=== PATIENT | female | born 1990 | race Caucasian/White ===

== ENCOUNTER 2018-11-03 17:32 | Emergency (ER) | payer SELFPAY ==
[~2018-11-03] VITALS: Ht 160 cm; Wt 95.5 kg
[2018-11-03 17:40] VITALS: BP 127/81
== END 2018-11-03 18:07 | disposition home or self-care (01) ==
LOC: ER 17:33
DX: M79.642 Pain in left hand (principal)
CPT/HCPCS: 29130; 73120; 99283

== ENCOUNTER 2019-01-20 10:03 | Emergency (ER) | payer OTHER ==
[~2019-01-20] VITALS: Ht 160 cm; Wt 95.5 kg
--- NOTE | 2019-01-20 10:10 | NUR ---
Relief with Zofran ODT given by EMS per pt.
[2019-01-20] MEDS ORDERED: ONDA4TAB6 PO (11:15)
[2019-01-20 11:24] VITALS: BP 140/92
== END 2019-01-20 11:25 | disposition home or self-care (01) ==
LOC: ER 10:03
DX: R11.2 Nausea with vomiting, unspecified (principal); R19.7 Diarrhea, unspecified; Z79.899 Other long term (current) drug therapy
CPT/HCPCS: 99283